=== PATIENT | male | born 1970 | race Caucasian/White ===

== ENCOUNTER 2017-01-27 09:50 | Emergency (ER) | payer OTHER ==
[2017-01-27] MEDS ORDERED: SODIUM CHLORIDE 0.9% 1,000 ML IV STA (11:31)
[2017-01-27] MEDS ORDERED: KETOROLAC 30 MG/ML 1 ML VIAL IVP STA (11:31)
[2017-01-27] MEDS ORDERED: ONDANSETRON 4 MG/2 ML VIAL IVP STA (11:31)
[2017-01-27 12:22] LABS: Basophils # (A) 0.1 k/uL (0-0.2); Basophils % (A) 1 %; CH 31.3; CHCM 35.7; Eosinophils # (A) 0.5 k/uL (0-0.7); Eosinophils % (A) 6 %; HCT 47.3 % (39.0-53.0); HDW 2.73; HGB 16.1 gm/dL (13.0-17.5); Luc # (Auto) 0.15; Luc % (Auto) 2; Lymphocytes # (A) 1.6 k/uL (1.0-4.8); Lymphocytes % (A) 19 %; MCH 29.9 pg (25.0-35.0); MCHC 33.9 g/dL (31.0-37.0); Monocytes # (A) 0.4 k/uL (0-1.0); Monocytes % (A) 5 %; Neutrophils # (A) 5.6 k/uL (1.3-7.7); Neutrophils % (A) 68 %; RBC 5.38 m/uL (4.30-5.90); RDW 14.4 % (11.5-15.5); WBC 8.3 k/uL (3.8-10.6); WBC (Perox) 8.02
--- NOTE | 2017-01-27 12:22 | ED ---
General Adult HPI - General Chief complaint: Back Pain/Injury Stated complaint: Lower Back Pain, Nauseated Time Seen by Provider: 01/27/17 10:58 Source: patient, RN notes reviewed Mode of arrival: ambulatory Limitations: no limitations - History of Present Illness Initial comments: 47-year-old male presents to the emergency department with a chief complaint of left-sided flank pain. Patient will get a stabbing pain to the left flank nauseous feeling terrible pain in the neurologist cold lately. Patient states that nothing seems to make it better or worse he just happens randomly. Patient states he's never had anything like this in the past. Patient seen changes in bowel or bladder habits. Patient was concerned due to her symptoms so he thought that he should be evaluated.Patient denies any recent fever, chills, shortness of breath, chest pain,numbness or tingling, dysuria or hematuria, constipation or diarrhea, headaches or visual changes, or any other current symptoms. - Related Data Home Medications Medication Instructions Recorded Confirmed Multivitamins, Thera [Multivitamin 1 tab PO DAILY 01/27/17 01/27/17 (formulary)] Previous Rx's Medication Instructions Recorded Hydrocodone/Acetaminophen [[place] 1 each PO Q6HR PRN #20 tab 01/27/17 5-325] Ketorolac [Toradol] 10 mg PO Q6HR #20 tab 01/27/17 Ondansetron Odt [Zofran ODT] 4 mg PO Q8HR PRN #20 tab 01/27/17 Tamsulosin [Flomax] 0.4 mg PO DAILY #5 cap 01/27/17 Allergies Allergy/AdvReac Type Severity Reaction Status Date / Time ragweed pollen Allergy Cough Verified 01/27/17 10:49 Review of Systems ROS Statement: Those systems with pertinent positive or pertinent negative responses have been documented in the HPI. ROS Other: All systems not noted in ROS Statement are negative. Past Medical History Additional Past Medical History / Comment(s): testicular cancer History of Any Multi-Drug Resistant Organisms: None Reported Additional Past Surgical History / Comment(s): left testicle removed Past Psychological History: No Psychological Hx Reported Smoking Status: Former smoker Past Alcohol Use History: None Reported Past Drug Use History: Marijuana General Exam - General Exam Comments Initial Comments: General: The patient is awake and alert, in no distress, and does not appear acutely ill. Eye: Pupils are equal, round and reactive to light, extra-ocular movements are intact; there is normal conjunctiva bilaterally. No signs of icterus. Ears, nose, mouth and throat: There are moist mucous membranes and no oral lesions. Neck: The neck is supple, there is no tenderness. Cardiovascular: There is a regular rate and rhythm. No murmur, rub or gallop is appreciated. Respiratory: Lungs are clear to auscultation, respirations are non-labored, breath sounds are equal. No wheezes, stridor, rales, or rhonchi. Gastrointestinal: Soft, non-distended, non-tender abdomen without masses or organomegaly noted. There is no rebound or guarding present. No CVA tenderness. Bowel sounds are unremarkable. Back: There is no tenderness to palpation in the midline. There is no obvious deformity. No rashes noted. Musculoskeletal: Normal ROM, no tenderness, There is no pedal edema. There is no calf tenderness or swelling. Sensation intact. Pulses equal bilaterally 2+. Neurological: CN II-XII intact, There are no obvious motor or sensory deficits. Coordination appears grossly intact. Speech is normal. Skin: Skin is warm and dry and no rashes or lesions are noted. Psychiatric: Cooperative, appropriate mood & affect, normal judgment. Limitations: no limitations Course Vital Signs 01/27/17 01/27/17 10:16 12:35 Temperature 98.8 F Pulse Rate 60 61 Respiratory 18 18 Rate Blood Pressure 127/87 120/73 O2 Sat by Pulse 98 98 Oximetry Medical Decision Making - Medical Decision Making 47-year-old male presents to the emergency department with a chief complaint of left flank pain. At this time patient's lab work is reviewed CAT scan. Extremities. Patient has a retrocardiac calculi. At this time we did discuss pain medication. We did give him follow-up urology. We discussed return parameters and all his questions. He stated he understood needs. Plan. All questions have been answered. He will be discharged - Lab Data Result diagrams: 01/27/17 12:00 01/27/17 12:00 Lab Results 01/27/17 01/27/17 01/27/17 Range/Units 12:00 12:00 12:00 WBC 8.3 (3.8-10.6) k/uL RBC 5.38 (4.30-5.90) m/uL Hgb 16.1 (13.0-17.5) gm/dL Hct 47.3 (39.0-53.0) % MCV 88.0 (80.0-100.0) fL MCH 29.9 (25.0-35.0) pg MCHC 33.9 (31.0-37.0) g/dL RDW 14.4 (11.5-15.5) % Plt Count 233 (150-450) k/uL Neutrophils % 68 % Lymphocytes % 19 % Monocytes % 5 % Eosinophils % 6 % Basophils % 1 % Neutrophils # 5.6 (1.3-7.7) k/uL Lymphocytes # 1.6 (1.0-4.8) k/uL Monocytes # 0.4 (0-1.0) k/uL Eosinophils # 0.5 (0-0.7) k/uL Basophils # 0.1 (0-0.2) k/uL Sodium 143 (137-145) mmol/L Potassium 4.0 (3.5-5.1) mmol/L Chloride 104 (98-107) mmol/L Carbon Dioxide 29 (22-30) mmol/L Anion Gap 10 mmol/L BUN 14 (9-20) mg/dL Creatinine 0.94 (0.66-1.25) mg/dL Est GFR (MDRD) Af Amer >60 (>60 ml/min/1.73 sqM) Est GFR (MDRD) Non-Af >60 (>60 ml/min/1.73 sqM) Glucose 97 (74-99) mg/dL Calcium 9.6 (8.4-10.2) mg/dL Total Bilirubin 1.0 (0.2-1.3) mg/dL AST 21 (17-59) U/L ALT 42 (21-72) U/L Alkaline Phosphatase 47 (38-126) U/L Total Protein 7.5 (6.3-8.2) g/dL Albumin 4.5 (3.5-5.0) g/dL Urine Color Yellow Urine Appearance Clear (Clear) Urine pH 7.5 (5.0-8.0) Ur Specific [place] 1.014 (1.001-1.035) Urine Protein Negative (Negative) Urine Glucose (UA) Negative (Negative) Urine Ketones Negative (Negative) Urine Blood Moderate H (Negative) Urine Nitrite Negative (Negative) Urine Bilirubin Negative (Negative) Urine Urobilinogen <2.0 (<2.0) mg/dL Ur Leukocyte Esterase Negative (Negative) Urine RBC 148 H (0-5) /hpf Urine WBC <1 (0-5) /hpf Amorphous Sediment Rare H (None) /hpf Urine Mucus Rare H (None) /hpf - Radiology Data Radiology results: report reviewed, image reviewed Disposition Clinical Impression: Left ureteral calculus Disposition: HOME SELF-CARE Condition: Stable Instructions: Kidney Stones (ED) Additional Instructions: Please use medication as discussed. Please follow up with family doctor if symptoms have not improved over the next two days. Please return to the emergency room if your symptoms increase or worsen or for any other concerns. Prescriptions: Hydrocodone/Acetaminophen [[place] 5-325] 1 each PO Q6HR PRN #20 tab PRN Reason: Pain Ketorolac [Toradol] 10 mg PO Q6HR #20 tab Ondansetron Odt [Zofran ODT] 4 mg PO Q8HR PRN #20 tab PRN Reason: Nausea Tamsulosin [Flomax] 0.4 mg PO DAILY #5 cap Referrals: James Roman MD [Primary Care Provider] - 1-2 days Donnell Espinal MD [STAFF PHYSICIAN] - 1-2 days Time of Disposition: 12:47
[2017-01-27 12:28] LABS: ALT 42 U/L (21-72); AST 21 U/L (17-59); Alkaline Phosphatase 47 U/L (38-126); Anion Gap 10 mmol/L; Blood Urea Nitrogen 14 mg/dL (9-20); Calcium 9.6 mg/dL (8.4-10.2); Carbon Dioxide 29 mmol/L (22-30); Chloride 104 mmol/L (98-107); Glucose 97 mg/dL (74-99); Non-African American GFR(MDRD) >60 (>60 ml/min/1.73 sqM); Sodium 143 mmol/L (137-145); Total Protein 7.5 g/dL (6.3-8.2)
[2017-01-27 12:31] LABS: Amorphous Sediment,Urine Rare /hpf; Appearance,Urine Clear (Clear); Bilirubin,Urine Negative (Negative); Glucose,Urine (UA) Negative (Negative); Ketones,Urine Negative (Negative); Leukocyte Esterase,Urine Negative (Negative); Mucus,Urine Rare /hpf; Nitrite,Urine Negative (Negative); PH, Urine 7.5 (5.0-8.0); Particle Count 2946; Protein,Urine Negative (Negative); RBC,Urine 148 /hpf (0-5); Specific Gravity,Urine 1.014 (1.001-1.035); UA Billing (MACRO vs. MICRO) MICRO; Urobilinogen,Urine <2.0 mg/dL (<2.0); WBC,Urine <1 /hpf (0-5)
--- NOTE | 2017-01-27 12:46 | CT ---
EXAMINATION TYPE: CT abdomen pelvis wo con DATE OF EXAM: 01/27/2017 COMPARISON: NONE HISTORY: left flank pain CT DLP: 806.5 mGycm Automated exposure control for dose reduction was used. TECHNIQUE: Helical acquisition of images was performed from the lung bases through the pelvis. FINDINGS: Evaluation of the hollow and solid viscera is limited secondary lack of intravenous and ora l contrast. LUNG BASES: Minimal subsegmental left basilar atelectasis is seen. LIVER/GB: No significant abnormality is appreciated. PANCREAS: No significant abnormality is seen. SPLEEN: No significant abnormality is seen. ADRENALS: No significant abnormality is seen. KIDNEYS: 1.0 cm nonobstructing left midpole renal calculus is present. 2 mm obstructing calculus is s een within the left mid ureter grating mild hydronephrosis. FREE AIR: No free air is visualized RETROPERITONEAL ADENOPATHY: None visualized REPRODUCTIVE ORGANS: No significant abnormality is seen URINARY BLADDER: No significant abnormality is seen. PELVIC ADENOPATHY: Single mildly enlarged 1.0 cm short axis left superficial inguinal lymph node is s een as well as multiple other prominent but not enlarged lymph nodes. This does contain fat inferiorl y and may be [id number]. OSSEOUS STRUCTURES: No significant abnormality is seen. BOWEL: No significant abnormality is seen. OTHER: Fat filled inguinal rings are seen bilaterally. Diastases recti is noted. Minimal atheromatous changes are seen of the abdominal aorta and its branches. IMPRESSION: 2 MM OBSTRUCTING CALCULUS WITHIN THE MID LEFT URETER CREATING MILD LEFT HYDRONEPHROSIS. ADDITIONAL NO NOBSTRUCTING 1.0 CM LEFT RENAL CALCULUS IS PRESENT.
[2017-01-27 13:06] VITALS: RESP 16
[2017-01-27 13:33] VITALS: BP 136/69; PULSE 76; TEMP 98
== END 2017-01-27 13:33 | disposition home or self-care (01) ==
LOC: EC 09:50
DX: N13.2 Hydronephrosis with renal and ureteral calculous obstruction (principal); Z90.79 Acquired absence of other genital organ(s); Z87.891 Personal history of nicotine dependence; Z85.47 Personal history of malignant neoplasm of testis; J30.1 Allergic rhinitis due to pollen; Z79.899 Other long term (current) drug therapy
CPT/HCPCS: 96361 ×2; 96374 ×2; 96375 ×2; 99284 ×2; 36415; 80053; 85025; 81001; 87086; 74176; J2405; J1885